=== PATIENT | female | born 1975 | race Caucasian/White ===

== ENCOUNTER 2020-08-17 06:40 | Day surgery (SDC) | payer OTHER ==
[2020-08-16 10:42] VITALS: BMI 22.6
[2020-08-17] MEDS ORDERED: BUPIVACAINE HCL/PF 0.25% (2.5MG/ML) 10 ML VIAL ONE (07:10)
[2020-08-17] MEDS ORDERED: LIDOCAINE HCL/PF 2% SDV 5ML VIAL ONE (07:14)
[2020-08-17] MEDS ORDERED: MIDAZOLAM HCL 2 MG/2 ML SINGLE DOSE VIAL ONE (07:15)
[2020-08-17] MEDS ORDERED: PROPOFOL 20 ML ONE ×2 (07:15→07:19)
[2020-08-17] MEDS ORDERED: EPHEDRINE SULFATE/0.9% NACL/PF 50 MG/10 ML SYRINGE NR ONE (07:19)
[2020-08-17] MEDS ORDERED: SUCCINYLCHOLINE CHLORIDE 200 MG/10 ML SYRINGE ONE (07:19)
[2020-08-17] MEDS ORDERED: ONDANSETRON 4 MG/2 ML VIAL IVPUSH PRN (07:36)
[2020-08-17] MEDS ORDERED: oxyCODONE HCL 5 MG TABLET PO PRN ×2 (07:36)
[2020-08-17] MEDS ORDERED: LACTATED RINGERS SOLUTION 1,000 ML IV SCH (07:45)
[2020-08-17] MEDS ORDERED: KETOROLAC TROMETHAMINE 30 MG/1 ML VIAL ONE (08:09)
[2020-08-17] MEDS ORDERED: GUM MASTIC/STORAX/MSAL/ALCOHOL 1 DRP DROPSBTL MC ONE (08:45)
[2020-08-17 08:54] VITALS: TEMP 97.7
[2020-08-17 09:53] VITALS: BP 98/68; PULSE 70
== END 2020-08-17 09:54 | disposition home or self-care (01) ==
LOC: FASU 06:40
PROVIDERS: ATTEND Orthopaedic Surgery Hand Surgery
PROC: 0LN60ZZ Release Left Lower Arm and Wrist Tendon, Open Approach (ICD-10-PCS; principal; 2020-08-17 08:00)
DX: M65.4 Radial styloid tenosynovitis [de Quervain] (principal)
CPT/HCPCS: 84703